=== PATIENT | female | born 1995 | race Hispanic/Latino ===

== ENCOUNTER 2024-01-28 23:56 | Emergency (ER) | payer BC, OTHER ==
[~2024-01-28] VITALS: Ht 162.6 cm; Wt 88.5 kg
[2024-01-29 00:01] VITALS: O2SAT 97
[2024-01-29 00:02] VITALS: BP 127/88; PULSE 100; RESP 16
[2024-01-29] MEDS: ACETAMINOPHEN 325 MG TAB PO STA (00:20)
== END 2024-01-29 01:56 | disposition home or self-care (01) ==
LOC: EDH 01-29
DX: S80.02XA Contusion of left knee, initial encounter (principal); S33.5XXA Sprain of ligaments of lumbar spine, initial encounter; E03.9 Hypothyroidism, unspecified; V89.2XXA Person injured in unspecified motor-vehicle accident, traffic, initial encounter; Y93.I9 Activity, other involving external motion; Y92.488 Other paved roadways as the place of occurrence of the external cause; Y99.8 Other external cause status
CPT/HCPCS: 72100; 73130; 73562

== ENCOUNTER 2024-01-29 15:51 | Emergency (ER) | payer OTHER, BC ==
[~2024-01-29] VITALS: Ht 162.6 cm; Wt 82.6 kg
[2024-01-29] MEDS: ACETAMINOPHEN 500 MG TABLET PO ONE (16:26)
[2024-01-29 17:00] VITALS: BP 126/74; PULSE 84; RESP 18; O2SAT 98
== END 2024-01-29 17:36 | disposition home or self-care (01) ==
LOC: EDH 15:51
DX: S60.212A Contusion of left wrist, initial encounter (principal); E03.9 Hypothyroidism, unspecified; V89.2XXA Person injured in unspecified motor-vehicle accident, traffic, initial encounter; Y93.I9 Activity, other involving external motion; Y92.488 Other paved roadways as the place of occurrence of the external cause; Y99.8 Other external cause status
CPT/HCPCS: 73130